=== PATIENT | male | born 1975 | race Caucasian/White ===

== ENCOUNTER 2016-12-13 10:31 | Emergency (ER) | END 2016-12-13 13:45 | disposition home or self-care (01) | DX: R42 Dizziness and giddiness (principal) | CPT/HCPCS: 70450; 82962; 93005; Z7502; Z7610 ==

== ENCOUNTER 2017-03-14 11:34 | Emergency (ER) | payer MEDICAID ==
[~2017-03-14] VITALS: Ht 170.2 cm; Wt 100.0 kg
[~2017-03-14 11:34] MED LIST: ALBU8.5H3 INH; MECL-77 PO; ONDA8TAB14 PO
[2017-03-14 11:35] VITALS: Ht 170.2 cm; Wt 100.0 kg
--- NOTE | 2017-03-14 12:10 | ERA ---
ER Documentation Chief Complaint Date/Time DATE: 03/14/17 TIME: 12:09 Chief Complaint dizziness, headache, cough, chest pain x 1 week. HPI The patient is a 42-year-old male, presenting to the ER because of intermittent dizziness, bilateral hand and leg numbness and minimal chest discomfort for the last 4 weeks. He was seen in the ER on December 13, 2016 for dizziness and had a negative head CT. He denies vertigo, facial pain, neck pain, chest pain with exertion of vomiting or diaphoresis, denies abdominal pain, vomiting, dysuria, diarrhea, constipation. He does not smoke, drinks socially, denies illicit drugs Past medical/surgical history: None ROS All systems reviewed and are negative except as per history of present illness. Medications Home Meds Discontinued Scripts Ondansetron (Ondansetron Odt) 8 Mg Tab.rapdis, 8 MG PO Q6H Y for NAUSEA AND/OR VOMITING, #6 TAB Prov:ALEXA ARAGON MD 12/13/16 Meclizine Hcl* (Meclizine Hcl*) 25 Mg Tablet, 25 MG PO Q8H Y for DIZZINESS, #20 TAB Prov:ALEXA ARAGON MD 12/13/16 Albuterol Sulfate* (Proair HFA*) 8.5 Gm Hfa.aer.ad, 2 PUFF INH Q4, #1 INHALER Prov:RUT AGUIRRE PA-C 05/10/16 Allergies Allergies: Coded Allergies: No Known Allergy (Unverified , 03/14/17) PMhx/Soc Hx Alcohol Use: No Hx Substance Use: No Hx Tobacco Use: No Physical Exam Vitals Vital Signs Date Time Temp Pulse Resp B/P Pulse Ox O2 Delivery O2 Flow Rate FiO2 03/14/17 11:35 98.4 97 20 155/85 96 Physical Exam Const: No acute distress. Head: Atraumatic. Eyes: Normal Conjunctiva. ENT: Normal External Ears, Nose and Mouth. Neck: Full range of motion. No meningismus. Resp: Clear to auscultation bilaterally. Cardio: Regular rate and rhythm. Abd: Soft, non distended, normal bowel sounds, non tender. Skin: No petechiae or rashes. Back: No midline or flank tenderness. Ext: No cyanosis, or edema. Neur: Awake and alert. No focal deficit Psych: Normal Mood and Affect. Result Diagram: 03/14/17 1218 03/14/17 1218 Results 24 hrs Laboratory Tests Test 03/14/17 12:18 White Blood Count 6.510^3/ul Red Blood Count 5.1010^6/ul Hemoglobin 15.3g/dl Hematocrit 44.4% Mean Corpuscular Volume 87.1fl Mean Corpuscular Hemoglobin 30.0pg Mean Corpuscular Hemoglobin Concent 34.5g/dl Red Cell Distribution Width 12.3% Platelet Count 28437^3/UL Mean Platelet Volume 9.2fl Neutrophils % 45.9% Lymphocytes % 40.7% Monocytes % 10.4% Eosinophils % 2.3% Basophils % 0.2% Nucleated Red Blood Cells % 0.0/100WBC Neutrophils # 3.010^3/ul Lymphocytes # 2.610^3/ul Monocytes # 0.710^3/ul Eosinophils # 0.210^3/ul Basophils # 0.010^3/ul Nucleated Red Blood Cells # 0.010^3/ul Prothrombin Time 12.1Sec Prothrombin Time Ratio 0.9 INR International Normalized Ratio 0.90 Activated Partial Thromboplast Time 29.8Sec Sodium Level 138mmol/L Potassium Level 3.8mmol/L Chloride Level 104mmol/L Carbon Dioxide Level 25mmol/L Anion Gap 13 Blood Urea Nitrogen 12mg/dl Creatinine 0.92mg/dl Glucose Level 108mg/dl Calcium Level 9.6mg/dl Troponin I < 0.012ng/ml Current Medications Medications (Trade) Dose Ordered Sig/Cori Route PRN Reason Start Time Stop Time Status Last Admin Dose Admin Meclizine HCl (Antivert) 25 mg ONCE ONCE PO 03/14/17 12:30 03/14/17 12:31 DC 03/14/17 12:25 Procedures/MDM EKG: Read by emergency physician Rate/Rhythm: Normal Sinus Rhythm 95 beats/min QRS, ST, T-waves: No ST elevation, no T inversion Impression: Normal EKG [place] [id number] Radiology Main Line: [phone] DIAGNOSTIC IMAGING REPORT Patient: ANGELA DANIELS : 1975 Age: 42 Sex: M MR #: [id number] DOS: 03/14/17 1216 Ordering MD: NAHEED CATHERINE MD Location: E/R Room/Bed: PROCEDURE: CHEST 1VW CLINICAL INDICATION: Chest pain TECHNIQUE: Single frontal view of the chest was obtained COMPARISON: 05/10/2016 FINDINGS: The cardiac size is normal. There is no pulmonary vascular congestion. The lungs are clear. No consolidation, effusion, or pneumothorax. No significant degenerative changes of the visualized osseous structures are visualized. IMPRESSION: 1. No acute cardiopulmonary process. RPTAT:PP .Candelario Romero MD, MD Date Time Electronically viewed and signed by .Candelario Romero MD, MD on 03/14/2017 13:16 .V/ CC: NAHEED CATHERINE MD MEDICAL MAKING DECISION: The patient is a 42-year-old male, presenting to the ER because of acute dizziness of unclear etiology. He was treated with Antivert 25 mg p.o. for dizziness with good response The differential diagnoses considered include but are not limited to central causes such as anxiety attack, panic attack, cerebellar infarct, cerebellar hemorrhage, cerebellar tumor, acoustic neuroma, peripheral causes such as benign positional vertigo, labyrinthitis, medication, Meniere's disease. Departure Diagnosis: Primary Impression: Dizziness Condition: Good Comments He was discharged with Antivert I discussed the findings with the patient. I advised the patient to follow-up with the primary physician in about 1-2 days, sooner if needed and return if any concern. The patient's blood pressure was elevated (>120/80) but appears stable without evidence of hypertension emergency or urgency. The patient was counseled about the risks of hypertension and urged to pursue outpatient monitoring and therapy within a week with their primary care physician. NAHEED CATHERINE MD Mar 14, 2017 12:10
[2017-03-14] MEDS ORDERED: MECLIZINE 12.5 MG TAB PO ONE (12:30)
[2017-03-14 12:46] LABS: ADD SCAN DIFF NO
[2017-03-14 12:51] LABS: BASOPHILS % 0.2 % (0.0-2.0); EOSINOPHILS # 0.2 10^3/ul (0.0-0.5); EOSINOPHILS % 2.3 % (0.0-7.0); HEMATOCRIT 44.4 % (42.0-52.0); HEMOGLOBIN 15.3 g/dl (14.0-18.0); LYMPHOCYTES # 2.6 10^3/ul (0.8-2.9); LYMPHOCYTES % 40.7 % (15.0-51.0); MEAN CORPUSCULAR HGB CONC 34.5 g/dl (32.0-37.0); MEAN CORPUSCULAR VOLUME 87.1 fl (82.0-101.0); MEAN PLATELET VOLUME 9.2 fl (7.4-10.4); MONOCYTE # 0.7 10^3/ul (0.3-0.9); MONOCYTES % 10.4 % (0.0-11.0); NEUTROPHILS % 45.9 % (39.0-77.0); PLATELET COUNT 281 10^3/UL (140-415); RED CELL DISTRIBUTION WIDTH 12.3 % (11.5-14.5); WHITE BLOOD COUNT 6.5 10^3/ul (4.8-10.8)
[2017-03-14 13:14] LABS: ANION GAP 13 (8-16); BLOOD UREA NITROGEN 12 mg/dl (7-20); CALCIUM 9.6 mg/dl (8.4-10.2); CARBON DIOXIDE 25 mmol/L (21-31); CHLORIDE 104 mmol/L (97-110); CREATININE 0.92 mg/dl (0.61-1.24); GLUCOSE 108 mg/dl (70-220); POTASSIUM 3.8 mmol/L (3.5-5.1); SODIUM 138 mmol/L (135-144)
--- NOTE | 2017-03-14 13:16 | RADRPT ---
PROCEDURE: CHEST 1VW CLINICAL INDICATION: Chest pain TECHNIQUE: Single frontal view of the chest was obtained COMPARISON: 05/10/2016 FINDINGS: The cardiac size is normal. There is no pulmonary vascular congestion. The lungs are clear. No consolidation, effusion, or pneumothorax. No significant degenerative changes of the visualized osseous structures are visualized. IMPRESSION: 1. No acute cardiopulmonary process. RPTAT:PP .Candelario Romero MD, MD Date Time Electronically viewed and signed by .Candelario Romero MD, on 03/14/2017 13:16 .V/
[2017-03-14 13:17] LABS: INR 0.9; PROTIME 12.1 Sec (12.2-14.2); PT RATIO 0.9
[2017-03-14 13:18] LABS: PARTIAL THROMBOPLASTIN TIME 29.8 Sec (25.0-35.0)
[2017-03-14 13:27] LABS: TROPONIN-I < 0.012 ng/ml (0.00-0.12)
[2017-03-14] MEDS ORDERED: MECL12.574 PO (13:37)
[2017-03-14 14:01] VITALS: BP 135/88; PULSE 64; RESP 20; TEMP 98.6
== END 2017-03-14 14:02 | disposition home or self-care (01) ==
LOC: E/R 11:34
DX: R42 Dizziness and giddiness (principal); R07.9 Chest pain, unspecified
CPT/HCPCS: 36415; 71010; 80048; 84484; 85025; 85610; 85730; 93005; Z7502; Z7610

== ENCOUNTER 2017-08-23 13:56 | Emergency (ER) | payer MEDICAID ==
[~2017-08-23] VITALS: Ht 175.3 cm; Wt 93.9 kg
[~2017-08-23 13:56] MED LIST changes: -ALBU8.5H3 INH; -MECL-77 PO; +MECL12.574 PO; -ONDA8TAB14 PO
[2017-08-23 14:06] VITALS: Ht 175.3 cm; Wt 93.9 kg
[2017-08-23 19:51] VITALS: TEMP 97.9
--- NOTE | 2017-08-23 21:16 | RADRPT ---
PROCEDURE: Portable chest x-ray. CLINICAL INDICATION: Chest pain. TECHNIQUE: Portable AP view of the chest. COMPARISON: 03/14/2017. FINDINGS: No pulmonary edema or conolidation is identified. The cardiac silhouette is magnified. No pleural effusion is seen. There is no pneumothorax. IMPRESSION: 1. No evidence of acute cardiopulmonary disease. RPTAT: HTAR .Kamari Stinson MD, MD Date Time Electronically viewed and signed by .Kamari Stinson MD, on 08/23/2017 21:16 .R/
[2017-08-23] MEDS ORDERED: KETOROLAC 30 MG INJ IV STA (21:24)
[2017-08-23 21:33] LABS: BASOPHILS % 0.2 % (0.0-2.0); EOSINOPHILS # 0.1 10^3/ul (0.0-0.5); HEMATOCRIT 42.3 % (42.0-52.0); HEMOGLOBIN 14.3 g/dl (14.0-18.0); LYMPHOCYTES # 2.7 10^3/ul (0.8-2.9); LYMPHOCYTES % 27.1 % (15.0-51.0); MEAN CORPUSCULAR HEMOGLOBIN 29.4 pg (29.0-33.0); MEAN CORPUSCULAR HGB CONC 33.8 g/dl (32.0-37.0); MONOCYTE # 0.9 10^3/ul (0.3-0.9); MONOCYTES % 8.8 % (0.0-11.0); NEUTROPHIL # 6.3 10^3/ul (1.6-7.5); NEUTROPHILS % 62.5 % (39.0-77.0); PLATELET COUNT 225 10^3/UL (140-415); RED BLOOD COUNT 4.86 10^6/ul (4.70-6.10); RED CELL DISTRIBUTION WIDTH 12.5 % (11.5-14.5); WHITE BLOOD COUNT 10.1 10^3/ul (4.8-10.8)
[2017-08-23 21:56] LABS: ANION GAP 19 (8-16); BLOOD UREA NITROGEN 12 mg/dl (7-20); CALCIUM 9.5 mg/dl (8.4-10.2); CARBON DIOXIDE 23 mmol/L (21-31); CHLORIDE 104 mmol/L (97-110); CREATININE 0.86 mg/dl (0.61-1.24); GLUCOSE 140 mg/dl (70-220); POTASSIUM 4.1 mmol/L (3.5-5.1); SODIUM 142 mmol/L (135-144)
[2017-08-23 22:11] LABS: TROPONIN-I < 0.012 ng/ml (0.00-0.12)
[2017-08-23 22:33] VITALS: BP 137/82; PULSE 75; RESP 16
--- NOTE | 2017-08-23 22:54 | ERD ---
ER Documentation Chief Complaint Chief Complaint HAS CP X 1 MONTH INTERMITTENT PAIN HPI 42-year-old male with no significant past medical history presenting with several months of left-sided chest pain that has been worse over the past 3 days. The pain is intermittent, happens at rest, worse with movement, improves with ambulation/walking. He intermittently has dizziness with his pain but no shortness of breath. Pain is across his left lower ribs, nonradiating. No leg swelling. No history of blood clots, recent travel, recent surgeries, immobilization. No cough, fever. ROS All systems reviewed and are negative except as per history of present illness. Medications Home Meds Discontinued Scripts Meclizine Hcl* (Antivert*) 12.5 Mg Tab, 25 MG PO Q6H Y for DIZZINESS, #20 TAB Prov:NAHEED CATHERINE MD 03/14/17 Allergies Allergies: Coded Allergies: No Known Allergy (Unverified , 08/23/17) PMhx/Soc Medical and Surgical Hx: pt denies Surgical Hx Anesthesia Reaction: No Hx Neurological Disorder: No Hx Respiratory Disorders: No Hx Cardiac Disorders: Yes (HTN) Hx Psychiatric Problems: No Hx Miscellaneous Medical Probl: No Hx Alcohol Use: Yes (occasional) Hx Substance Use: No Hx Tobacco Use: No Smoking Status: Unknown if ever smoked FmHx Family History: coronary disease (Brother had heart attack in his late 20s), No diabetes Physical Exam Vitals Vital Signs Date Time Temp Pulse Resp B/P Pulse Ox O2 Delivery O2 Flow Rate FiO2 08/23/17 22:33 75 16 137/82 99 Room Air 08/23/17 19:51 97.9 85 16 146/82 99 Room Air 08/23/17 14:06 98.0 102 18 95/52 97 Physical Exam Const: Well-appearing, no apparent distress, no diaphoresis Head: Atraumatic Eyes: Normal Conjunctiva ENT: Normal External Ears, Nose and Mouth. Neck: Full range of motion..~ No meningismus. Resp: Clear to auscultation bilaterally Cardio: mild left-sided chest wall tenderness to palpation. REgular rate and rhythm, no murmurs. 2+ distal pulses Abd: Soft, non tender, non distended. Normal bowel sounds Skin: No petechiae or rashes Back: No midline or flank tenderness Ext: No cyanosis, or edema Neur: Awake and alert Psych: Normal Mood and Affect Result Diagram: 08/23/17205408/23/172054 Results 24 hrs Laboratory Tests Test 08/23/17 20:55 White Blood Count 10.110^3/ul Red Blood Count 4.8610^6/ul Hemoglobin 14.3g/dl Hematocrit 42.3% Mean Corpuscular Volume 87.0fl Mean Corpuscular Hemoglobin 29.4pg Mean Corpuscular Hemoglobin Concent 33.8g/dl Red Cell Distribution Width 12.5% Platelet Count 34500^3/UL Mean Platelet Volume 10.0fl Neutrophils % 62.5% Lymphocytes % 27.1% Monocytes % 8.8% Eosinophils % 1.0% Basophils % 0.2% Nucleated Red Blood Cells % 0.0/100WBC Neutrophils # 6.310^3/ul Lymphocytes # 2.710^3/ul Monocytes # 0.910^3/ul Eosinophils # 0.110^3/ul Basophils # 0.010^3/ul Nucleated Red Blood Cells # 0.010^3/ul Sodium Level 142mmol/L Potassium Level 4.1mmol/L Chloride Level 104mmol/L Carbon Dioxide Level 23mmol/L Anion Gap 19 Blood Urea Nitrogen 12mg/dl Creatinine 0.86mg/dl Glucose Level 140mg/dl Calcium Level 9.5mg/dl Troponin I < 0.012ng/ml Current Medications Medications (Trade) Dose Ordered Sig/Cori Route PRN Reason Start Time Stop Time Status Last Admin Dose Admin Ketorolac Tromethamine (Toradol) 30 mg ONCE STAT IV 08/23/17 21:24 08/23/17 21:26 DC 08/23/17 21:41 Procedures/MDM EKG #1: Rate/Rhythm: [Normal Sinus Rhythm] QRS, ST, T-waves: [No changes consistent w/ acute ischemia] Impression: [No evidence of ischemia or arrhythmia] EKG #2: Rate/Rhythm: [Normal Sinus Rhythm] QRS, ST, T-waves: [No changes consistent w/ acute ischemia] Impression: [No evidence of ischemia or arrhythmia] Imaging Chest x-ray does not show any acute abnormalities Labs: CBC unremarkable BMP unremarkable Troponin within normal limits MDM The patient presents with chest pain. Vitals are stable. I considered pulmonary embolism, aortic dissection, pneumothorax among other diagnoses. Evaluation for acute coronary syndrome was performed. The HEART score was utilized for risk stratification and found to be 1. Repeat troponin was not warranted as the patient's symptoms have been present for more than 24 hours. Based on this evaluation the patient's risk of major adverse cardiac events is <1%. Shared decision making occurred with patient and the decision has been made to discharge the patient for outpatient evaluation and functional study within 72 hours. Patient instructed to arrange follow up with PCP in the next 2 days and return to the ED for any new or worsening symptoms. Departure Diagnosis: Primary Impression: Chest pain Chest pain type: unspecified Qualified Code: R07.9 - Chest pain, unspecified type Additional Impression: Dyspnea Dyspnea type: unspecified Qualified Code: R06.00 - Dyspnea, unspecified type Condition: Stable Patient Instructions: Chest Pain, Uncertain Cause Referrals: NO PRIMARY,CARE PHYSICIAN Additional Instructions: Beth valeriano nickolas con benitez medico primarion en 2-3 juarez. Si estas empeorando, regresa a la katie de emergencias. MIKEY ZAMORANO MD Aug 23, 2017 22:54
== END 2017-08-23 22:35 | disposition home or self-care (01) ==
LOC: E/R 13:56
DX: R07.9 Chest pain, unspecified (principal); R06.00 Dyspnea, unspecified; I10 Essential (primary) hypertension
CPT/HCPCS: 36415; 71010; 80048; 84484; 85025; 93005; 96374; J1885; Z7502